=== PATIENT | female | born 1990 | race Caucasian/White ===

== ENCOUNTER 2021-08-13 12:10 | Outpatient (CLI) | payer BC | END 2021-08-13 12:11 | disposition home or self-care (01) | LOC: CSHCT 12:10 | PROVIDERS: ATTEND Otolaryngology Plastic Surgery within the Head & Neck | DX: C73 Malignant neoplasm of thyroid gland (principal); E04.1 Nontoxic single thyroid nodule | CPT/HCPCS: 70492 ==